=== PATIENT | male | born 1965 | race Caucasian/White ===

== ENCOUNTER 2024-12-13 14:26 | Emergency (ER) | payer OTHER, SELFPAY ==
--- NOTE | ~2024-12-13 | CT_ITS ---
CLINICAL HISTORY: head injury CT head without contrast Comparison: None Findings: No intra-axial mass, midline shift, hydrocephalus, or acute hemorrhage. No significant atrophy-like change or white matter disease. The visualized paranasal sinuses and mastoid air cells are normal. The orbits are unremarkable. No skull fracture. IMPRESSION: 1. No acute intracranial findings. This document has been electronically signed by: Tina Beck MD on 12/13/2024 15:36:56
[2024-12-13 14:30] VITALS: BP 136/72; PULSE 57; RESP 18; TEMP 37; O2SAT 100; BMI 28.9
--- NOTE | 2024-12-13 14:31 | ED_ITS ---
HPI - Head Injury General Chief complaint: Head Injury Stated complaint: head inj at work Laceration Time Seen by Provider: 12/13/24 20:35 Source: patient Limitations: no limitations History of Present Illness ED Provider: Lyn Yip PA-C HPI Narrative: 59-year-old male presents with scalp laceration. Patient states he was at work, he works with the [employer] department. He was helping to place a digital sign on the road, he stood up quickly and struck his head on the quarter of the side. Tetanus up-to-date, the patient does use aspirin. Related Data Allergies Allergy/AdvReac Type Severity Reaction Status Date / Time No Known Allergies Allergy Verified 12/13/24 14:37 Review of Systems Review of Systems: Yes all other systems are reviewed and are negative Constitutional: Constitutional: Denies fatigue, Denies fever(s) and Reports headache(s) ENT: Denies dizziness and Reports headache(s) Gastrointestinal: Gastrointestinal: Denies nausea and Denies vomiting Integumentary/Breasts: Skin/Breast: Reports wounds Neurologic: Denies dizziness and Reports headache(s) Endocrine: Endocrine: Denies fatigue [facility] Past Medical History Attestation statement: The following information was validated with the patient. Social History Social History Advance Directives: No Advance Directives Information Provided: No Physical Exam Vital Signs: Vital Signs: Last Vital Signs Temp 97.3 F 12/13/24 20:22 Pulse 57 12/13/24 20:22 Resp 18 12/13/24 20:22 BP 146/87 H 12/13/24 20:22 Pulse Ox 97 12/13/24 20:22 O2 Del Method Room Air 12/13/24 20:22 BMI result Body Mass Index 28.9 Const: Other: Alert well-appearing, 2 cm excoriation noted over scalp, not bleeding Orientation/consciousness: patient oriented x3 Resp: Effort & Inspection: normal respiratory effort Cardio: Other: Normal peripheral perfusion Skin: Other: Warm dry no rash Neuro: General: patient oriented x3, gait normal, no focal motor deficits and CN's II-XI intact bilaterally Psych: Other: Cooperative Course Course Course Narrative: This is a Rapid Medical Exam performed in triage by Sveta Triplett PA-C. Full HPI, ROS and PE to be performed by primary ED provider. 59 yo M presenting to the ED c/o head laceration s/p hitting head on metal sign at work [employer]. States was stepping over trailer hitch and fell forward into sign. Denies LOC. takes 81 ASA Tetanus UTD. PE: 2cm superficial laceration noted to left scalp. Bleeding controlled Plan: Head CT, repair wound Medical Decision Making Medical Decision Making MDM Narrative: 59-year-old male presents with scalp laceration. Patient states he was at work, he works with the [employer] department. He was helping to place a digital sign on the road, he stood up quickly and struck his head on the quarter of the side. Tetanus up-to-date, the patient does use aspirin. No relevant chronic issues History: Per patient I have considered the following differential diagnoses: Laceration, excoriation, abrasion, contusion Plan: CT of the brain was ordered from triage, I would not have, this is an excoriation, not a laceration, we will seal with surgical glue I have independently reviewed the following tests: CT brain : IMPRESSION: 1. No acute intracranial findings. Procedures Laceration Laceration 1: Site: scalp Side (If applicable): left Size (cm): 2 Description: linear Depth: simple, single layer Local Anesthetic: other anesthetic (none) Pre-repair: irrigated extensively Technique: other (surgical glue) Discharge Plan Discharge Clinical Impression: Laceration of scalp Patient Disposition: Home, Self-Care Instructions: Laceration Without Closure (ED) Additional Instructions: The CT scan of the head was normal. Your very superficial laceration of the scalp was sealed with surgical glue. The excess we will slough off on its own. You can shower normally. Follow up with your primary care as needed. Stand Alone Forms: Work/School Release Print Language: Maltese
[2024-12-13 20:22] VITALS: BP 146/87; PULSE 57; RESP 18; TEMP 36.3; O2SAT 97
[2024-12-13 21:39] VITALS: BP 146/87; PULSE 57; RESP 18; TEMP 36.3; O2SAT 97
== END 2024-12-13 21:40 | disposition home or self-care (01) ==
PROVIDERS: Emergency Provider Emergency Medicine; PCP Hospitalist
DX: S01.01XA Laceration without foreign body of scalp, initial encounter (principal); W45.8XXA Other foreign body or object entering through skin, initial encounter; Y93.89 Activity, other specified; Y92.89 Other specified places as the place of occurrence of the external cause; Y99.0 Civilian activity done for income or pay
CPT/HCPCS: 12001; 70450; 99282; 99284

== ENCOUNTER → 2024-12-13 14:33 | Outpatient (BNV) | payer OTHER, SELFPAY | PROVIDERS: PCP Hospitalist; Visit Provider Nuclear Medicine | DX: S09.90XA Unspecified injury of head, initial encounter (principal) | CPT/HCPCS: 70450 ==